=== PATIENT | female | born 1995 | race Two or more races ===

== ENCOUNTER 2025-02-13 21:21 | Inpatient (IN) | payer MEDICAID, SELFPAY ==
[2025-02-13 21:34] VITALS: BMI 31.1
[2025-02-13 21:45] VITALS: BP 124/74; PULSE 80; RESP 18; TEMP 36.8
[2025-02-13 22:37] VITALS: BP 122/73; PULSE 83
[2025-02-13 23:06] VITALS: BP 115/71; PULSE 85
[2025-02-13 23:50] LABS: Basophils % (Auto) 0 % (0-2.5); Eosinophils # (Auto) 0.1 Thou/mm3 (0.0-0.5); Eosinophils % (Auto) 1 % (0-10); Hematocrit 37.3 % (36.0-46.0); Hemoglobin 12.7 g/dL (12.0-16.0); Immature Granulocytes % (Auto) 1 % (0-0); Immature Granulocytes Auto 0.07 Thou/mm3 (0.00-0.00); Lymphocytes # (Auto) 3.4 Thou/mm3 (1.0-4.8); Lymphocytes % (Auto) 27 % (10-50); Mean Corpuscular Hemoglobin 30.3 pg (25.0-35.0); Mean Corpuscular Volume 89 fL (80-100); Monocytes # (Auto) 0.7 Thou/mm3 (0.0-0.8); Monocytes % (Auto) 5 % (0-12); Neutrophils # (Auto) 8.3 Thou/mm3 (1.8-7.7); Neutrophils % (Auto) 66 % (37-80); Nucleated Red Blood Cell % 0 /100 WBC (0); Platelet Count 332 Thou/mm3 (140-440); RDW Standard Deviation 43.7 fL (36.4-46.3); Red Blood Count 4.19 Miln/mm3 (4.00-5.20); White Blood Count 12.6 Thou/mm3 (3.6-11.0)
[2025-02-13 23:55] LABS: Amphetamine/Metham Scrn,Ur OB Negative (Negative); Benzoylecgonine Screen, Ur OB Negative (Negative); Opiate Screen,Urine OB Negative (Negative); THC Screen,Urine OB Negative (Negative)
[2025-02-14] VITALS (168 sets, daily range): BP systolic 95–213; BP diastolic 51–80; PULSE 67–146; RESP 16–18; TEMP 36.7–36.9; O2SAT 82–100
--- NOTE | 2025-02-14 | XR_ITS ---
Examination: Complete OB ultrasound greater than 14 weeks Date and time of exam: February 14, 2025 1340 hours INDICATIONS: Labor induction today preop Findings: Viable intrauterine single fetus with single amniotic sac presentation cephalic Cardiac motion 136 BPM Placenta fundal anterior grade 2 Umbilical cord insertion seen Amniotic fluid index 15.8 cm spine maternal left Cervix 2.9 cm Ovaries obscured by bowel gas. Composite estimated gestational age based on BPD, head circumference, abdominal circumference, femur length is 36 weeks 1 day Estimated weight 2924 g. Survey of intracranial anatomy, spinal anatomy, abdominal anatomy, four-chamber heart performed with no abnormalities identified. Impression: Viable intrauterine gestation cephalic presentation.
[2025-02-14 00:27] LABS: Syphilis Nonreactive (Nonreactive)
--- NOTE | 2025-02-14 03:29 | PRELIM_ITS ---
Obstetric ultrasound. February 14, 2025 at 0140 hours Clinical history: Induction of labor. Comparison: No prior study is available for comparison. Findings: There is a gravid uterus with a live fetus in cephalic presentation of mean gestational age 36 weeks and 1 day (by biometry). cardiac activity is present at a heart rate of 136 beats per minute. The placenta is fundal / anterior in location, maturity grade II. There is no evidence of placenta previa or retroplacental hemorrhage. Amniotic fluid is adequate (DANIEL = 15.8 cm). Estimated weight is 2923.7 grams+/- 433 grams. Estimated due date by ultrasound is 03/13/2025. The cervical length measures 2.9 cm. The ovaries are obscured by bowel gas and are not evaluated on this examination. The bladder and stomach are visualized. The kidneys are not visualized. The spine is maternal left. Impression: Gravid uterus with a single live fetus in cephalic presentation of mean gestational age 36 weeks 1 day. Other findings as described above. Report Electronically Signed By: Pasquale Cash 02/14/2025 3:28:29 AM [EST]
[2025-02-14] MEDS: Ampicillin Inj 2,000 MG in SODIUM CHLORIDE 0.9% (POP) 100 ML 200 MG IV (04:02)
[2025-02-14] MEDS: RINGERS LACTATED 1000 ML 1,000 ML 100 ML IV (04:04)
[2025-02-14] MEDS: DINOPROSTONE 10 MG VAG.SUPP VAGINAL (04:09)
[2025-02-14] MEDS: Ampicillin Inj 1,000 MG in SODIUM CHLORIDE 0.9% (Popper) 50 ML 50 MG IV ×3 (08:01→16:37)
--- NOTE | 2025-02-14 09:11 | PD.LDHP ---
Documentation for date of: 02/14/25 OB Labor/Induct. HPI History of Present Illness Chief complaint: IOL/elective : 2 Para: 1 Term pregnancies: 1 pregnancies: 1 Living children: 1 History of Abortions: Spontaneous and Elective: 0 History of Vaginal deliveries: 1 Date of last menstrual period: 03/25/24 ELAINE: 02/14/25 Gestational Age (weeks): 40 Gestational Age (days): 0 Gestational age based on last menstrual period: 46 History of present illness: This is a 29-year-old 2 para 1 admit to labor and delivery for induction of labor. Patient has been followed at [facility] for care since about 7 weeks. Patient had poor dates. Last menstrual period was March 25, 2024. This gives due date December 21, 2024. First ultrasound in July patient was 9 weeks in this change due date February 14. Patient had a 21-week ultrasound that also confirm dates. Denies any existing medical problems and denies surgeries. History of marijuana use. Patient is A+, antibody screen negative, RPR nonreactive, rubella immune, hepatitis B negative, hep C negative, HIV negative, GC and Chlamydia were negative. Her 1 hour normal. NIPT, AFP and screens were negative. And GBS was positive History of Present Dating criteria: LMP confirmed by 1st trimester US Adequate Care: Yes Ultrasounds: normal 1st trimester US and normal mid trimester US Obstetrical complications: none Medical complications: none Labs Labs: Positive: Rubella Titre and Group Beta Strep, Negative: RPR, Hepatitis B, HIV, Chlamydia and Gonorrhea and Unknown: Herpes Type 1 and Herpes Type 2 Review of Systems Review of Systems Systems Reviewed: All systems reviewed, normal except as documented Meds Home Medications and Allergies Home Medications ?Medication ?Instructions ?Recorded ?Confirmed ?Type vits no.126-ferrous fum 1 tab PO DAILY 02/13/25 02/13/25 History 28 mg iron-folic acid 800 mcg tablet (Classic ) Allergies Allergy/AdvReac Type Severity Reaction Status Date / Time No Known Allergies Allergy Verified 02/13/25 22:30 OB Exam Physical Exam Vital signs: Temp Pulse Resp BP Pulse Ox 98.2 F 81 17 156/55 H 96 02/14/25 04:05 02/14/25 07:05 02/14/25 04:05 02/14/25 09:04 02/14/25 09:07 Narrative: Normal heart rate and rhythm. Lungs clear no wheezes. Gravid abdomen gynecoid pelvis. Estimated weight 7 pounds. Patient had ultrasound on admission showed the baby at 2900 g. And measuring 36 weeks. The patient is 40 weeks by good dates. heart rate category 1 with accelerations and variability. No decelerations. Occasional contraction. Water intact. Vertex presentation by sono. Exam was 60%, 3, -3. Vertex. Cervix was posterior and soft Detailed Labor and Delivery Exam Dilation (cm): 3 Effacement (%): 60 Cervix position: posterior station: -3 Consistency: soft Presentation: Vertex Cervical ripeness score: 3 Membranes: intact Baseline heart rate: 140 monitor accelerations: 15x15 monitor decelerations: None senior care variability: Moderate (11-25) Contraction frequency (min): occ Contraction duration (sec): mild Tachysystole: No Contraction intensity: Mild OB Results Labs 02/13/25 22:00 Labs: Short CBC 02/13/25 Range/Units 22:00 WBC 12.6 H (3.6-11.0) Thou/mm3 Hgb 12.7 (12.0-16.0) g/dL Hct 37.3 (36.0-46.0) % Plt Count 332 (140-440) Thou/mm3 OB Assessment & Plan Assessment and Plan (1) Normal labor and delivery: Status: Acute Additional Plan Induction method: per misoprostol protocol Plan: anticipate NVD, GBS prophylaxis tx and consult MD chowdhury
[2025-02-14] MEDS: fentaNYL CIT INJ 50 mCg/ML AMP 2ML 100 MCG IVP (14:17)
[2025-02-14] MEDS: MISOPROSTOL 200 mCg TABLET 800 MCG PR (19:25)
[2025-02-14] MEDS: OXYTOCIN INJ 10 UNIT/ML VIAL IM (19:37)
[2025-02-14] MEDS: OXYTOCIN in NS 20 units 20 UNIT/1,000 ML BAG 125 UNIT IV (19:37)
[2025-02-14] MEDS: MINERAL OIL 30 ML UDC TOP (19:37)
[2025-02-14] MEDS: TRANEXAMIC ACID 1,000 MG IVPB 1,000 MG/100 ML BAG 200 MG IV (19:38)
--- NOTE | 2025-02-14 19:53 | PD.LDDELS ---
Data (Acharya) Data : 2 Term: 1 : 1 Livin Abortions: Spontaneous & Theraputic: 0 Delivery Data (Acharya) Labor Data Initiation of labor: Spontaneous Induction/Augmentation Agent: Cervidil ROM date: 02/14/25 ROM time: 17:15 Amniotic membrane rupture type: Spontaneous Amniotic fluid description: Clear Delivery Data EDC: 02/14/25 EDC calculated by:: LMP/early US confirmation Date of arrival to unit: 02/13/25 Time of arrival to unit: 21:21 Onset of labor date: 02/14/25 Onset of labor time: 14:00 Complete dilation date: 02/14/25 Complete dilation time: 18:23 [place] delivery date: 02/14/25 delivery time: 19:21 Gestational age (weeks): 40 Gestational age (days): 0 Placenta delivery date: 02/14/25 Placenta delivery time: 19:27 Stage 1 total time: Labor - Stage 1 Duration 4 hours and 23 minutes Delivered by: Zahraa Alcocer Delivery nurse: SANDOVAL QUIJANO RN AND LUCIO DELA CRUZ RN [place] nurse: DAMION MANNING RN Warehouse Loader at delivery: No Support person(s) at delivery: FATHER OF BABY, PT'S MOTHER IN LAW Delivery Method Delivery method: Normal Vaginal Delivery Presentation: Vertex position: OP Anesthesia Type Anesthesia Type: Epidural Delivery Room Medications Delivery room medications: Pitocin 10 u IM, Pitocin 20 u IV and Cytotec 800 [place] Placenta Placenta delivery description: Spontaneous (inspected, intact) Cord blood sent to lab: Yes Episiotomy Episiotomy description: None Lacerations #1: Vaginal: 1st degree (bilateral labia) Perineal repair Sutures used for repair: 3.0 Vicryl EBL Estimated blood loss (ml): 400 Umbilical Cord cord description: 3 Vessels Data (Acharya) Data order: 1 's gender: Female weight (gms): 3060 g Weight (pounds): 6 lbs and 11.9 ozs 1 minute: 8 5 minutes: 9
[2025-02-14] MEDS: IBUPROFEN TAB 400 MG TABLET 800 MG PO (20:41)
[2025-02-14] MEDS: DOCUSATE SOD 100 MG CAPSULE PO (20:41)
[2025-02-14] MEDS: BENZO/LANO/ALOE (Dermoplast) 60 GM CAN 1 SPRAY TOP (20:43)
[2025-02-15 04:00] VITALS: BP 113/71; PULSE 82; RESP 18; TEMP 36.5; O2SAT 97
[2025-02-15 05:16] LABS: Basophils % (Auto) 0 % (0-2.5); Eosinophils # (Auto) 0.1 Thou/mm3 (0.0-0.5); Eosinophils % (Auto) 1 % (0-10); Hemoglobin 10.7 g/dL (12.0-16.0); Immature Granulocytes % (Auto) 0 % (0-0); Immature Granulocytes Auto 0.05 Thou/mm3 (0.00-0.00); Lymphocytes # (Auto) 3.3 Thou/mm3 (1.0-4.8); Lymphocytes % (Auto) 21 % (10-50); Mean Corpuscular HGB Conc 34.5 g/dl (31.0-37.0); Mean Corpuscular Hemoglobin 30.6 pg (25.0-35.0); Mean Corpuscular Volume 89 fL (80-100); Monocytes # (Auto) 0.7 Thou/mm3 (0.0-0.8); Monocytes % (Auto) 5 % (0-12); Neutrophils # (Auto) 11.6 Thou/mm3 (1.8-7.7); Neutrophils % (Auto) 73 % (37-80); Nucleated Red Blood Cell % 0 /100 WBC (0); Platelet Count 260 Thou/mm3 (140-440); RDW Standard Deviation 44.5 fL (36.4-46.3); White Blood Count 15.8 Thou/mm3 (3.6-11.0)
[2025-02-15 07:51] VITALS: BP 123/76; PULSE 82; RESP 18; TEMP 36.7; O2SAT 98
--- NOTE | 2025-02-15 08:23 | PD.LDPPPRG ---
Subjective Subjective Interval history: No complaints of pain. No dizziness. Bonding Exam Vital Signs Temp Pulse Resp BP Pulse Ox O2 Del Method 98.1 F 82 18 123/76 98 Room Air 02/15/25 07:51 02/15/25 07:51 02/15/25 07:51 02/15/25 07:51 02/15/25 07:51 02/15/25 07:51 Narrative Exam Normal heart rate and rhythm. Lungs clear no wheezes. Perineum intact. No swelling. Small vaginal laceration that was repaired. Uterus well involuted. To be below umbilicus. Small lochia. Fundus firm. Negative Homans' sign. 2+ DTR Objective Labs 02/15/25 05:03 Labs: Laboratory Results - last 24 hr 02/15/25 05:03 WBC 15.8 H RBC 3.50 L Hgb 10.7 L D Hct 31.0 L MCV 89 MCH 30.6 MCHC 34.5 RDW Std Deviation 44.5 Plt Count 260 D Neut % (Auto) 73 Lymph % (Auto) 21 Butler % (Auto) 5 Eos % (Auto) 1 Baso % (Auto) 0 Neut # (Auto) 11.6 H Lymph # (Auto) 3.3 Butler # (Auto) 0.7 Eos # (Auto) 0.1 Baso # (Auto) 0.0 Immature Gran # (Auto) 0.05 H Absolute Nucleated RBC 0.00 Immature Gran % 0 Nucleated RBC % 0 Assessment & Plan Problem List (1) Normal labor and delivery: Status: Acute Assessment Comment Assessment comment: 24 hr pp Plan Comment Plan Comment: Discharge home with baby. Okay to board if baby is health. Continue to vitamins and iron. Tylenol or ibuprofen for pain. Discussed comfort measures for laceration. I discussed ER precautions and signs symptoms of infection. And I discussed danger signs symptoms increase fluids. Return in 3 weeks visit Time Spent With Patient Time: Total time spent is greater than 50% in coordination of care (as documented) at patient's floor/unit and/or counseling patient:
--- NOTE | 2025-02-15 08:27 | PD.LDDS ---
DS: Providers Provider Date of admission: 02/13/25 21:21 Primary care physician: Taiwo Fountain MD Admitting Provider: Garfield Angelo CNM Attending Provider on Admission: Mike Morris MD Consults: 02/14/25 20:30 Referral Routine Comment: Attending Provider on DC: Zahraa Alcocer CNM Discharging Provider: Zahraa Alcocer CNM DS: Diagnosis Problem List Completed Was Problem List Reviewed/Reconciled?: Yes Summary/Hosp Course Brief History: This is a 29-year-old 2 para 1 admit to labor and delivery for induction of labor. Patient has been followed at [facility] for care since about 7 weeks. Patient had poor dates. Last menstrual period was March 25, 2024. This gives due date December 21, 2024. First ultrasound in July patient was 9 weeks in this change due date February 14. Patient had a 21-week ultrasound that also confirm dates. Denies any existing medical problems and denies surgeries. History of marijuana use. Patient is A+, antibody screen negative, RPR nonreactive, rubella immune, hepatitis B negative, hep C negative, HIV negative, GC and Chlamydia were negative. Her 1 hour normal. NIPT, AFP and screens were negative. And GBS was positive Peripartum Data Delivery Method: Normal Vaginal Delivery Episiotomy Description: None Laceration Description: yes (labia and vag) complications: none Time Spent with Patient Time attestation: Total time spent providing and/or coordinating discharge services: Exam Vital Signs Temp Pulse Resp BP Pulse Ox O2 Del Method 98.1 F 82 18 123/76 98 Room Air 02/15/25 07:51 02/15/25 07:51 02/15/25 07:51 02/15/25 07:51 02/15/25 07:51 02/15/25 07:51 Discharge Plan Plan Patient Disposition: HOME (Self Care) Patient condition on transfer: Stable Prescriptions/Referrals Prescriptions/Med Rec: No Action Classic 28 mg iron- 800 mcg tablet 1 tab PO DAILY Referrals: Taiwo Fountain MD [Primary Care Provider] - Patient/Caregiver Discharge Instructions Meds to Beds: No Discharge Activity: resume usual activities Print Language: Tristanian Activity Restrictions/Additional Instructions: Discharge home today with baby. Okay to board if baby is held. Continue vitamins and iron. Tylenol ibuprofen for pain. Discussed danger signs symptoms and ER precautions Discussed signs symptoms of infection. Discussed comfort measures for vaginal laceration. Increase fluids. Return in 3 weeks visit Stand Alone Forms: Za Award Info., Patient Portal Info Letter Discharge Order Discharge Orders: Discharge (Routine); Ordered 02/15/25 Ordered By: Zahraa Alcocer Planned Discharge Date 02/15/25
--- NOTE | 2025-02-15 10:24 | PC.SS ---
ELEMENTARY SCHOOL ART TEACHERMona, met with patient [id number] to do initial assessment due to testing positive for cannabis on care. ELEMENTARY SCHOOL ART TEACHER introduced herself, role in the agency, reason for visit, and discussed limits of confidentiality. Patient appeared alert and oriented to self, time, place, and situation. Patient appears stated age. Patient made good eye contact. Patient?s attitude appeared pleasant and cooperative. Patient?s behavior appeared ordinary. Patient?s mood appears ordinary. No signs of delusions or hallucinations. This is 29-year-old, , female who presented to the hospital to deliver her daughter, June. Patient confirmed her address and phone number. Patient reported that she resides at home with her 3-year-old and , Micky. She reports being independent with all her ADLs, no DME use. Patient reports that prior to admission, she was unemployed. Patient currently receives WIC and food-stamps. Patient denies any history or current mental health illnesses. She denies receiving any outpatient mental health services. Patient denies any history of suicide attempts, 5150 holds. Patient declined any history or current substance use. Patient declined any involvement with CWS. Patient declined any domestic violence at home. Patient self-reported using cannabis prior to finding out that she was . Patient reported that she immediately stopped using cannabis. Patient denied any other substance use. Patient reports feeling happy and excited to return home. Patient reports having all the equipment for the baby.Patient has her own vehicle for transportation. When medically clear, patient will return home with her .
[2025-02-15 11:41] VITALS: BP 101/64; PULSE 86; RESP 18; TEMP 36.7; O2SAT 98
[2025-02-15 15:38] VITALS: BP 125/86; PULSE 82; RESP 18; TEMP 36.7; O2SAT 98
[2025-02-15 20:00] VITALS: BP 114/73; PULSE 84; RESP 18; TEMP 36.7; O2SAT 97
[2025-02-15] MEDS: DOCUSATE SOD 100 MG CAPSULE PO (20:36)
== END 2025-02-15 20:53 | disposition home or self-care (01) | DRG 560 ==
LOC: S4SX 02-14 19:36 → S4NX 02-14 22:43
PROVIDERS: Advanced Practice Midwife; PCP Family Medicine; Visit Provider Specialist
DX: O99.824 Streptococcus B carrier state complicating childbirth (principal); O70.0 First degree perineal laceration during delivery; O48.0 Post-term pregnancy; Z37.0 Single live birth; Z3A.40 40 weeks gestation of pregnancy
CPT/HCPCS: 36415; 59409; 76805; 80307; 85025; 86780; 86850; 86900; 86901; 94762; J0290; J2590; J2795; J3010; J3490; J7050; J7120; S0191; A9270